=== PATIENT | female | born 1970 | race Caucasian/White ===

== ENCOUNTER 2018-12-09 22:11 | Emergency (ER) | payer BC ==
[~2018-12-09] VITALS: Ht 154.9 cm; Wt 68.0 kg
[2018-12-09] MEDS ORDERED: BUTA-247 PO (22:45)
[2018-12-09] MEDS ORDERED: DEXA4TAB PO (22:46)
[2018-12-09] MEDS ORDERED: HYDR-4010 PO (22:47)
[2018-12-09] MEDS ORDERED: OMEP40CA37 PO (22:47)
[2018-12-09] MEDS ORDERED: RANI150T43 PO (22:48)
[2018-12-09] MEDS ORDERED: PROC10TA13 PO (22:48)
[2018-12-09] MEDS ORDERED: ONDA8TAB6 PO (22:48)
[2018-12-09] MEDS ORDERED: ZOLP5TAB2 PO (22:49)
[2018-12-09] MEDS ORDERED: [UNRECOGNIZED DRUG - CODE] IV (22:52)
[2018-12-09] MEDS ORDERED: [UNRECOGNIZED DRUG - CODE] IV (22:53)
[2018-12-09 23:40] LABS: BASOPHILS # (AUTO) 0.1 K/uL (0.0-8.0); BASOPHILS % (AUTO) 1.4 % (0.0-2.0); EOSINOPHILS # (AUTO) 0.1 K/uL (0.0-0.7); EOSINOPHILS % (AUTO) 1.3 % (0.0-7.0); HEMATOCRIT 34.8 % (31.2-41.9); HEMOGLOBIN 11.7 g/dL (10.9-14.3); LYMPHOCYTES # (AUTO) 1.1 K/uL (20.0-40.0); LYMPHOCYTES % (AUTO) 28.6 % (20.5-51.5); MEAN CORPUSCULAR HEMOGLOBIN 27.8 uug (24.7-32.8); MEAN CORPUSCULAR HGB CONC 34 g/dL (32.3-35.6); MEAN CORPUSCULAR VOLUME 82.7 fL (75.5-95.3); MONOCYTES # (AUTO) 0.8 K/uL (2.0-10.0); MONOCYTES % (AUTO) 19.8 % (0.0-11.0); NEUTROPHILS # (AUTO) 1.9 K/uL (1.8-8.9); NEUTROPHILS % (AUTO) 48.9 % (38.5-71.5); PLATELET COUNT (AUTO) 153 K/uL (179-408)
[2018-12-09 23:55] LABS: CREATININE 0.8 mg/dL (0.6-1.3); POTASSIUM 4.1 mmol/L (3.5-5.1)
[2018-12-10 00:01] LABS: BILIRUBIN,DIRECT 0.1 mg/dL (0.0-0.2); BILIRUBIN,TOTAL 0.3 mg/dL (0.2-1.0); TOTAL PROTEIN, SERUM 7.3 g/dL (6.4-8.2)
[2018-12-10 00:25] VITALS: BP 118/89
--- NOTE | 2018-12-10 00:25 | NUR ---
Patient discharged to home in stable conditon. Written and verbal after care instructions given. Patient verbalizes understanding of instructions. WALKED OUT OF ER WITH NO DISTRESS NOTED
[2018-12-10 00:57] LABS: EOSINOPHILS % (MANUAL) 1 % (0-8); LYMPHOCYTES % (MANUAL) 30 % (20-40); METAMYELOCYTES % 5 % (0-1); MONOCYTES % (MANUAL) 17 % (2-10); MYELOCYTES % 3 % (0-0); NEUTROPHILS % (MANUAL) 44 % (42-75)
== END 2018-12-10 00:27 | disposition home or self-care (01) ==
LOC: ER 22:12
DX: Z00.00 Encounter for general adult medical examination without abnormal findings (principal); R50.9 Fever, unspecified; Z79.899 Other long term (current) drug therapy
CPT/HCPCS: 36415; 85025; 85730; 87040; A4663

== ENCOUNTER 2024-04-27 19:17 | Emergency (ER) | payer BC ==
[~2024-04-27] VITALS: Ht 154.9 cm; Wt 62.1 kg
[~2024-04-27 19:17] MED LIST: BUTA-247 PO; DEXA4TAB PO; HYDR-4676 PO; OMEP40CA21 PO; ONDA8TAB6 PO; PROC10TA13 PO; RANI-655 PO; ZOLP5TAB2 PO; [UNRECOGNIZED DRUG - CODE] IV; [UNRECOGNIZED DRUG - CODE] IV
[2024-04-27 21:36] LABS: BASOPHILS # (AUTO) 0.1 K/UL (0.0-0.2); BASOPHILS % (AUTO) 0.9 % (0.0-2.0); EOSINOPHILS # (AUTO) 0.2 K/uL (0.0-0.7); EOSINOPHILS % (AUTO) 2.5 % (0.0-7.0); HEMATOCRIT 38.9 % (31.2-41.9); HEMOGLOBIN 12.9 g/dL (10.9-14.3); LYMPHOCYTES # (AUTO) 2.3 K/uL (0.8-4.8); LYMPHOCYTES % (AUTO) 34.4 % (20.5-51.5); MEAN CORPUSCULAR HEMOGLOBIN 26.8 uug (24.7-32.8); MEAN CORPUSCULAR HGB CONC 33 g/dL (32.3-35.6); MEAN CORPUSCULAR VOLUME 80.8 fL (75.5-95.3); MONOCYTES # (AUTO) 0.6 K/uL (0.1-1.30); MONOCYTES % (AUTO) 8.8 % (0.0-11.0); NEUTROPHILS # (AUTO) 3.6 K/uL (1.8-8.9); NEUTROPHILS % (AUTO) 53.4 % (38.5-71.5); PLATELET COUNT (AUTO) 222 K/uL (179-408); RED BLOOD CELL COUNT(AUTO) 4.81 MIL/uL (3.63-4.92); RED CELL DISTRIBUTION WIDTH 14.2 % (12.3-17.7); WHITE BLOOD COUNT (AUTO) 6.8 K/uL (3.8-11.8)
[2024-04-27 21:47] LABS: CALCIUM 9.1 mg/dL (8.5-10.1); CREATININE 0.6 mg/dL (0.6-1.3); POTASSIUM 4.2 mmol/L (3.5-5.1)
[2024-04-27 21:59] LABS: ALBUMIN 3.4 g/dL (3.4-5.0); BILIRUBIN,TOTAL 0.9 mg/dL (0.2-1.0); TOTAL PROTEIN, SERUM 7.2 g/dL (6.4-8.2)
[2024-04-27 22:05] LABS: *BILIRUBIN,URIN NEGATIVE (NEGATIVE); *BLOOD, URINE NEGATIVE (NEGATIVE); *CLARITY,URINE CLEAR (CLEAR); *COLOR,URINE YELLOW (YELLOW); *KETONES,URINE NEGATIVE (NEGATIVE); *PROTEIN,URINE NEGATIVE (NEGATIVE); *UROBILINOGEN,URINE 0.2 E.U./dl (NORMAL); LEUKOCYTE ESTERASE ,URINE NEGATIVE (NEGATIVE); NITRITE, URINE NEGATIVE (NEGATIVE); UGLUCOSE NEGATIVE (NEGATIVE)
[2024-04-27 22:20] LABS: *AMPHETAMINE, URINE NEGATIVE (NEGATIVE); *BARBITURATE, URINE POSITIVE (NEGATIVE); *BENZODIAZEPINE, URINE NEGATIVE (NEGATIVE); *CANNABINOID, URINE NEGATIVE (NEGATIVE); *COCCAINE, URINE NEGATIVE (NEGATIVE); *OPIATE, URINE NEGATIVE (NEGATIVE); *PHENCYCLIDINE SCREEN,URINE NEGATIVE (NEGATIVE); FENTANYL, URINE NEGATIVE (NEGATIVE)
[2024-04-28 00:51] VITALS: BP 118/90; TEMP 98; O2SAT 99
== END 2024-04-28 00:52 | disposition home or self-care (01) ==
LOC: ER 19:18
DX: M54.2 Cervicalgia (principal); K21.9 Gastro-esophageal reflux disease without esophagitis; Z85.3 Personal history of malignant neoplasm of breast; Z79.52 Long term (current) use of systemic steroids; Z79.899 Other long term (current) drug therapy
CPT/HCPCS: 36415; 71045; 84484; 85025; A4606; A4663